=== PATIENT | female | born 1950 | race Hispanic/Latino ===

== ENCOUNTER 2018-03-28 10:46 | Emergency (ER) | payer OTHER ==
[2018-03-28 12:25] LABS: Absolute Lymphocytes (CBC) 2.6 K/uL (0.7-4.9); Absolute Monocytes 0.5 K/uL (0.1-1.3); Absolute Neutrophil 5.1 K/uL (1.8-8.0); Basophils % 1.3 % (0-1.3); Eosinophils % 1.2 % (0-4.4); Hematocrit 42.6 % (36.0-45.0); MCH 30.4 pg (27.0-35.0); MCV 89.4 fL (80-100); MPV 9.4 fL (7.6-11.3); Monocytes % 5.5 % (3.3-12.3); RBC Red Blood Cell Count 4.77 M/uL (3.86-4.86)
[2018-03-28 12:33] LABS: Urine Blood TRACE (NEG); Urine Glucose NEGATIVE (NEG); Urine Protein NEGATIVE (NEG); Urine pH 6.5 (5.0-7.0)
--- NOTE | 2018-03-28 12:39 | EKG ---
Test Date: 2018-03-28 Test Time: 11:40:08 Mounter Clarinets: VIANCA MEASUREMENT RESULTS: Intervals: Rate: 64 MS: 146 QRSD: 80 QT: 394 QTc: 406 [place]: P: 50 MS: 146 QRS: 45 T: 59 INTERPRETIVE STATEMENTS: Normal sinus rhythm Normal ECG No previous ECG available for comparison Electronically Signed On 03-28-18 12:38:42 CDT by Fabio Kwon
[2018-03-28 12:45] LABS: Magnesium 2.3 mg/dL (1.8-2.4)
[2018-03-28 13:37] LABS: ALT/SGPT 17 U/L (12-78); AST/SGOT 14 U/L (15-37); Alkaline Phosphatase 86 U/L (45-117); BUN Blood Urea Nitrogen 14 mg/dL (7-18); Bicarbonate 24 mmol/L (21-32); Bilirubin Total 0.5 mg/dL (0.2-1.0); Glucose Level 91 mg/dL (74-106); Potassium 3.9 mmol/L (3.5-5.1); Protein, Total 7.8 g/dL (6.4-8.2); Sodium Level 143 mmol/L (136-145)
--- NOTE | 2018-03-28 13:42 | EDPHYS ---
Physician Documentation [facility] Name: Lynn Rubin Age: 67 yrs Sex: Female : 1950 Arrival Date: 03/28/2018 Time: 10:49 Bed 18 Private MD: None, None ED Physician John Blair HPI: 03/28 11:32 This 67 yrs old Female presents to ER via Ambulatory with complaints of ps1 lightheaded. 11:32 patient states that she has been really stressed lately and not getting much sleep. She ps1 has been losing weight and having symptoms of diabetes with polyuria and polydipsia. She was on her way to work last night and felt a couple episodes of lightheadedness and she stayed home and went to sleep. She hasn't been sleeping much, about an hour a day but got sleep last night. No CP, tightness, pressure. . Historical: - Allergies: 10:55 No Known Allergies; jl7 - Home Meds: 10:55 None [Active]; jl7 - PMHx: 10:55 None; jl7 - PSHx: 10:55 Tubal ligation; jl7 - Immunization history:: Adult Immunizations unknown. - Social history:: Smoking status: Patient/guardian denies using tobacco. - Ebola Screening: : No symptoms or risks identified at this time. ROS: 11:32 Eyes: Negative for injury, pain, redness, and discharge, ENT: Negative for injury, ps1 pain, and discharge, Cardiovascular: Negative for chest pain, palpitations, and edema, Respiratory: Negative for shortness of breath, cough, wheezing, and pleuritic chest pain, Abdomen/GI: Negative for abdominal pain, nausea, vomiting, diarrhea, and constipation, Back: Negative for injury and pain. 11:32 Constitutional: Positive for fatigue, weight loss. 11:32 : Positive for urinary frequency. 11:32 Neuro: Positive for near syncope. Exam: 11:32 Constitutional: This is a well developed, well nourished patient who is awake, alert, ps1 and in no acute distress. Head/Face: Normocephalic, atraumatic. Eyes: Pupils equal round and reactive to light, extra-ocular motions intact. Lids and lashes normal. Conjunctiva and sclera are non-icteric and not injected. Chest/axilla: Normal chest wall appearance and motion. Nontender with no deformity. No lesions are appreciated. Cardiovascular: Regular rate and rhythm. No gallops, murmurs, or rubs. Normal PMI, no JVD. No pulse deficits. Respiratory: Lungs have equal breath sounds bilaterally, clear to auscultation and percussion. No rales, rhonchi or wheezes noted. No increased work of breathing, no retractions or nasal flaring. Abdomen/GI: Soft, non-tender, with normal bowel sounds. No distension or tympany. No guarding or rebound. No evidence of tenderness throughout. Skin: Warm, dry with normal turgor. Normal color with no rashes, no lesions, and no evidence of cellulitis. MS/ Extremity: Pulses equal, no cyanosis. Neurovascular intact. Full, normal range of motion. Neuro: Awake and alert, GCS 15, oriented to person, place, time, and situation. Cranial nerves II-XII grossly intact. Sensory grossly intact. Vital Signs: 10:55 BP 163 / 97; Pulse 72; Resp 16 S; Temp 98.4(O); Pulse Ox 97% on R/A; Pain 0/10; jl7 12:00 BP 134 / 86; Pulse 71; Resp 16; Temp 98.3; Pulse Ox 99% on R/A; Pain 0/10; ch 13:29 BP 175 / 92; Pulse 60; Resp 14; Temp 97.2; Pulse Ox 99% on R/A; Pain 0/10; ch MDM: 11:42 Patient medically screened. ps1 13:46 Data reviewed: vital signs, nurses notes, lab test result(s), EKG, radiologic studies, ps1 and as a result, I will discharge patient. Counseling: I had a detailed discussion with the patient and/or guardian regarding: the historical points, exam findings, and any diagnostic results supporting the discharge/admit diagnosis, the presence of at least one elevated blood pressure reading (>120/80) during this emergency department visit, lab results, the need for outpatient follow up, an visual lead. Special discussion: I have referred the patient to see his PCP for further evaluation of high blood pressure. 03/28 11:28 Order name: Lipase; Complete Time: 12:47 ps1 03/28 11:28 Order name: CBC with Diff; Complete Time: 12:28 ps1 03/28 11:28 Order name: Magnesium; Complete Time: 12:47 ps1 03/28 11:28 Order name: Protime (+inr); Complete Time: 12:56 ps1 03/28 11:28 Order name: Troponin (emerg Dept Use Only); Complete Time: 12:56 ps1 03/28 12:23 Order name: Urine Dipstick--Ancillary (enter results); Complete Time: 12:37 bd 03/28 11:28 Order name: EKG; Complete Time: 11:29 ps1 03/28 11:28 Order name: Cardiac monitoring; Complete Time: 13:29 ps1 03/28 11:28 Order name: EKG - Nurse/Tech; Complete Time: 13:29 ps1 03/28 11:28 Order name: IV Saline Lock; Complete Time: 13:29 ps1 03/28 11:28 Order name: Labs collected and sent; Complete Time: 13:29 ps1 03/28 11:28 Order name: NPO; Complete Time: 13:29 ps1 03/28 11:28 Order name: O2 Per Protocol; Complete Time: 13:29 ps1 03/28 13:13 Order name: CMP; Complete Time: 13:41 ps1 03/28 11:28 Order name: O2 Sat Monitoring; Complete Time: 13:29 ps1 03/28 11:28 Order name: Urine Dipstick-Ancillary (obtain specimen); Complete Time: 13:29 ps1 EC:40 Rate is 64 beats/min. Rhythm is regular. QRS [place] is Normal. UT interval is normal. QRS ps1 interval is normal. QT interval is normal. No Q waves. T waves are Normal. No ST changes noted. Clinical impression: Normal ECG. Interpreted by me. Administered Medications: No medications were administered Disposition: 03/28/18 13:42 Discharged to Home. Impression: Near Syncope, Anxiety. - Condition is Stable. - Discharge Instructions: Near-Syncope, [id number]. - Medication Reconciliation Form, Thank You Letter, Antibiotic Education, Prescription Opioid Use form. - Follow up: Private Physician; When: As needed; Reason: Further diagnostic work-up, Recheck today's complaints, Continuance of care, Re-evaluation by your physician. Follow up: Emergency Department; When: As needed; Reason: Trouble breathing, Worsening of condition. - Problem is new. - Symptoms are resolved. Signatures: Dispatcher [employer] EDTN Dean, Jahala, RN RN jl7 John Blair MD MD ps1 JoshuamirandaMaya cc3 Corrections: (The following items were deleted from the chart) 14:17 13:42 03/28/2018 13:42 Discharged to Home. Impression: Near Syncope; Anxiety. Condition cc3 is Stable. Forms are Medication Reconciliation Form, Thank You Letter, Antibiotic Education, Prescription Opioid Use. Follow up: Private Physician; When: As needed; Reason: Further diagnostic work-up, Recheck today's complaints, Continuance of care, Re-evaluation by your physician. Follow up: Emergency Department; When: As needed; Reason: Trouble breathing, Worsening of condition. Problem is new. Symptoms are resolved. ps1
--- NOTE | 2018-03-28 13:42 | ER ---
Nurse's Notes [facility] Name: Lynn Rubin Age: 67 yrs Sex: Female : 1950 Arrival Date: 03/28/2018 Time: 10:49 Bed 18 Private MD: None, None Diagnosis: Near Syncope;Anxiety Presentation: 03/28 10:52 Presenting complaint: Patient states: "I got dizzy last night so I thought I should get jl7 checked out." Denies dizziness right now, denies BOGGS, denies N/V/D. Transition of care: patient was not received from another setting of care. Onset of symptoms was March 27, 2018. Risk Assessment: Do you want to hurt yourself or someone else? Patient reports no desire to harm self or others. Initial Sepsis Screen: Does the patient meet any 2 criteria? No. Patient's initial sepsis screen is negative. Does the patient have a suspected source of infection? No. Patient's initial sepsis screen is negative. Care prior to arrival: None. 10:52 Method Of Arrival: Ambulatory jl7 10:52 Acuity: CARMEN 3 jl7 Historical: - Allergies: 10:55 No Known Allergies; jl7 - Home Meds: 10:55 None [Active]; jl7 - PMHx: 10:55 None; jl7 - PSHx: 10:55 Tubal ligation; jl7 - Immunization history:: Adult Immunizations unknown. - Social history:: Smoking status: Patient/guardian denies using tobacco. - Ebola Screening: : No symptoms or risks identified at this time. Screenin:03 Abuse screen: Denies threats or abuse. Denies injuries from another. Nutritional ch screening: No deficits noted. Tuberculosis screening: No symptoms or risk factors identified. Fall Risk None identified. Assessment: 11:02 General: Appears in no apparent distress. comfortable, Behavior is calm, cooperative, ch appropriate for age. Pain: Denies pain. Neuro: Level of Consciousness is awake, alert, obeys commands, Oriented to person, place, time, situation, Maintenance Helper are equal bilaterally Moves all extremities. Full function Gait is steady, Speech is normal, Facial symmetry appears normal, Facial symmetry: tongue is midline, Pupils are PERRLA, Reports dizziness, intermittantly, with slight pain in temples intermittantly. Cardiovascular: Denies chest pain. Respiratory: Airway is patent Respiratory effort is even, unlabored, Breath sounds are clear bilaterally. GI: No signs and/or symptoms were reported involving the gastrointestinal system. : No signs and/or symptoms were reported regarding the genitourinary system. EENT: Reports feeling full in L ear, feels like she cannot hear quite right. . Derm: Skin is pink, warm \\T\\ dry. Musculoskeletal: Circulation, motion, and sensation intact. 12:00 Reassessment: Patient appears in no apparent distress at this time. No changes from previously documented assessment. Patient and/or family updated on plan of care and expected duration. Pain level reassessed. Patient is alert, oriented x 3, equal unlabored respirations, skin warm/dry/pink. Patient denies pain at this time. 13:07 Reassessment: Patient appears in no apparent distress at this time. Patient and/or ch family updated on plan of care and expected duration. Pain level reassessed. Patient is alert, oriented x 3, equal unlabored respirations, skin warm/dry/pink. Patient denies pain at this time. 13:29 Reassessment: Patient appears in no apparent distress at this time. Patient and/or ch family updated on plan of care and expected duration. Pain level reassessed. Patient is alert, oriented x 3, equal unlabored respirations, skin warm/dry/pink. Patient denies pain at this time. Patient states feeling better. Patient states symptoms have improved. Vital Signs: 10:55 BP 163 / 97; Pulse 72; Resp 16 S; Temp 98.4(O); Pulse Ox 97% on R/A; Pain 0/10; jl7 12:00 BP 134 / 86; Pulse 71; Resp 16; Temp 98.3; Pulse Ox 99% on R/A; Pain 0/10; ch 13:29 BP 175 / 92; Pulse 60; Resp 14; Temp 97.2; Pulse Ox 99% on R/A; Pain 0/10; ED Course: 10:49 Patient arrived in ED. mr 10:49 None, None is Private Physician. mr 10:55 Triage completed. jl7 10:55 Arm band placed on right wrist. jl7 11:01 Gloria Foreman, RN is Primary Nurse. ch 11:03 No apparent distress. Resting quietly. ch 11:03 Patient has correct armband on for positive identification. Bed in low position. Call light in reach. Side rails up X 1. 11:03 No provider procedures requiring assistance completed. 11:06 John Blair MD is Attending Physician. ps1 12:20 Urine collected:. Inserted saline lock: 18 gauge in left forearm, using aseptic technique. Blood collected. 14:17 IV discontinued, intact, bleeding controlled, No redness/swelling at site. Pressure cc3 dressing applied. Administered Medications: No medications were administered Outcome: 13:42 Discharge ordered by MD. ps1 14:16 Discharged to home ambulatory. cc3 14:16 Condition: stable 14:16 Discharge instructions given to patient, Instructed on discharge instructions, follow up and referral plans. Demonstrated understanding of instructions, follow-up care. 14:17 Patient left the ED. cc3 Signatures: Gloria Foreman, RN DOMENICA Lynn Marshall Jahala RN RN jl7 John Blair MD MD ps1 Maya Gill cc3
[2018-03-28 14:25] VITALS: O2SAT 99
[2018-03-28 14:26] VITALS: BP 175/92; TEMP 97.2
== END 2018-03-28 14:17 | disposition home or self-care (01) ==
LOC: ER 10:46
DX: F41.9 Anxiety disorder, unspecified (principal); R55 Syncope and collapse
CPT/HCPCS: 36415; 80053; 81003; 83690; 83735; 84484; 85025; 85610; 93005; 99283

== ENCOUNTER 2019-04-16 14:23 | Emergency (ER) | payer OTHER ==
[2019-04-16 15:28] LABS: Absolute Lymphocytes (CBC) 2.5 K/uL (0.7-4.9); Basophils % 0.8 % (0-1.3); Hematocrit 40.6 % (36.0-45.0); Lymphocytes % 28.2 % (15.3-44.8); MPV 9.7 fL (7.6-11.3); RBC Red Blood Cell Count 4.53 M/uL (3.86-4.86)
[2019-04-16 15:33] LABS: Protime INR 0.96
[2019-04-16 15:47] LABS: ALT/SGPT 17 U/L (12-78); AST/SGOT 10 U/L (15-37); Albumin 3.6 g/dL (3.4-5.0); Alkaline Phosphatase 89 U/L (45-117); BUN Blood Urea Nitrogen 14 mg/dL (7-18); Bicarbonate 27 mmol/L (21-32); Bilirubin Direct < 0.1 mg/dL (0-0.2); Bilirubin Total 0.3 mg/dL (0.2-1.0); Glucose Level 109 mg/dL (74-106); Magnesium 2.1 mg/dL (1.8-2.4); NT PRO-BNP 92 pg/mL (<125); Potassium 3.5 mmol/L (3.5-5.1); Protein, Total 7.4 g/dL (6.4-8.2); Sodium Level 145 mmol/L (136-145); Troponin (Emerg Dept Use Only) < 0.02 ng/mL (0.0-0.045)
--- NOTE | 2019-04-16 16:42 | RAD REPORT ---
EXAM DESCRIPTION: Jabari Single View04/16/2019 3:05 pm CLINICAL HISTORY: Chest pain COMPARISON: none FINDINGS: The lungs appear clear of acute infiltrate. The heart is normal size . Lucency with a sclerotic border is within the left humeral head may represent subchondral cysts
[2019-04-16] MEDS ORDERED: KETOROLAC 30 MG/ML INJ ONE (17:05)
[2019-04-16] MEDS ORDERED: AMLODIPINE 5 MG TAB ONE (17:05)
--- NOTE | 2019-04-16 17:15 | ER ---
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 Transition of care: patient was not received from another setting of care. Onset of symptoms was April 16, 2019. Risk Assessment: Do you want to hurt yourself or someone else? Patient reports no desire to harm self or others. Initial Sepsis Screen: Does the patient meet any 2 criteria? No. Patient's initial sepsis screen is negative. Does the patient have a suspected source of infection? No. Patient's initial sepsis screen is negative. Care prior to arrival: None. 14:32 Method Of Arrival: Ambulatory la1 14:32 Acuity: CARMEN 3 la1 Historical: - Allergies: 14:33 No Known Allergies; la1 - PMHx: 14:33 None; la1 - Immunization history:: Adult Immunizations up to date. - Social history:: Smoking status: Patient/guardian denies using tobacco. - Ebola Screening: : No symptoms or risks identified at this time. Screenin:21 Abuse screen: Denies threats or abuse. Denies injuries from another. Nutritional rv screening: No deficits noted. Tuberculosis screening: No symptoms or risk factors identified. Fall Risk None identified. Assessment: 16:00 General: Appears in no apparent distress. comfortable, Behavior is calm, cooperative. rv 16:00 Pain: Complains of pain in left shoulder. Neuro: Level of Consciousness is awake, rv alert, obeys commands, Oriented to person, place, time, situation. Cardiovascular: Patient's skin is warm and dry. Respiratory: Airway is patent. GI: No signs and/or symptoms were reported involving the gastrointestinal system. : No signs and/or symptoms were reported regarding the genitourinary system. EENT: No signs and/or symptoms were reported regarding the EENT system. Derm: Skin is intact. Musculoskeletal: Reports pain in left shoulder. Vital Signs: 14:33 BP 222 / 85; Pulse 79; Resp 16; Temp 97.1; Pulse Ox 98% on R/A; Weight 54.43 kg; Height la1 5 ft. 4 in. (162.56 cm); 15:15 BP 191 / 86; Pulse 67; Resp 19; Pulse Ox 98% ; lt1 15:30 BP 181 / 93; Pulse 68; Resp 21; Pulse Ox 98% on R/A; rv 15:45 BP 202 / 92; Pulse 69; Resp 17; Pulse Ox 98% on R/A; rv 16:00 BP 198 / 92; Pulse 68; Resp 17; Pulse Ox 99% on R/A; rv 16:32 BP 210 / 87; Pulse 64; Resp 16; Pulse Ox 99% ; rv 16:45 BP 181 / 98; Pulse 65; Resp 16; Pulse Ox 99% on R/A; rv 17:20 BP 182 / 82; Pulse 66; Resp 16; Temp 97.5; Pulse Ox 98% on R/A; rv 14:33 Body Mass Index 20.60 (54.43 kg, 162.56 cm) la1 ED Course: 14:27 Patient arrived in ED. dl4 14:28 None, None is Private Physician. dl4 14:33 Triage completed. la1 14:34 Arm band placed on left wrist. la1 14:42 April Matamoros [facility]-C [facility]. snw 14:42 Butch Mcclellan MD is Attending Physician. snw 15:00 Patient has correct armband on for positive identification. Bed in low position. Call rv light in reach. Side rails up X 1. Pulse ox on. NIBP on. 15:05 Tyrese Gonzalez, DOMENICA is Primary Nurse. rv 15:08 XRAY Chest (1 view) In Process Unspecified. EDMS 15:14 Initial lab(s) drawn, by me, sent to lab. EKG done, by ED staff. Inserted saline lock: lt1 20 gauge in left antecubital area, using aseptic technique. 17:12 Honorio Wray MD is Referral Physician. snw 17:44 No provider procedures requiring assistance completed. IV discontinued, intact, rv bleeding controlled, No redness/swelling at site. Pressure dressing applied. Administered Medications: 17:10 Drug: Norvasc 5 mg Route: PO; rv 17:28 Follow up: Response: No adverse reaction rv 17:10 Drug: TORadol - Ketorolac 15 mg Route: IVP; Site: left antecubital; rv 17:27 Follow up: Response: No adverse reaction rv Outcome: 17:13 Discharge ordered by MD. [place] 17:44 Discharged to home ambulatory, with family. rv 17:44 Condition: good 17:44 Discharge instructions given to patient, family, Instructed on discharge instructions, follow up and referral plans. medication usage, Demonstrated understanding of instructions, follow-up care, medications, Prescriptions given X 2. 17:44 Patient left the ED. rv Signatures: Dispatcher [employer] EDMS April Matamoros, DELIVERY SUPERVISOR-C DELIVERY SUPERVISOR-Csnw Nathaniel Iyer RN RN la1 Tyrese Gonzalez RN RN rv Jason Arboleda dl4 Odalys Garces lt1 Corrections: (The following items were deleted from the chart) 14:46 14:32 Acuity: CARMEN 4 la1 la1
--- NOTE | 2019-04-16 17:16 | EDPHYS ---
Physician Documentation [facility] Name: Lynn Rubin Age: 68 yrs Sex: Female : 1950 Arrival Date: 04/16/2019 Time: 14:27 Bed 28 Private MD: None, None ED Physician Butch Mcclellan HPI: 04/16 15:10 This 68 yrs old Female presents to ER via Ambulatory with complaints of snw Shoulder Pain. 15:10 The patient or guardian complains of decreased range of motion, pain, that is chronic, snw spasm, tenderness. left shoulder, left trapezius and left sternocleidomastoid. Context: The problem was sustained at an unknown site, resulted from repetitive motion, lifting, The patient experiences decreased range of motion, when attempts to raise arm. Onset: The symptoms/episode began/occurred gradually, and became persistent 2 days ago. Modifying factors: the symptoms are alleviated by remaining still. Severity of symptoms: At their worst the symptoms were moderate. The patient has experienced a previous episode, approximately 8 months ago. The patient has not recently seen a physician, and does not have an established primary care provider. Historical: - Allergies: 14:33 No Known Allergies; la1 - PMHx: 14:33 None; la1 - Immunization history:: Adult Immunizations up to date. - Social history:: Smoking status: Patient/guardian denies using tobacco. - Ebola Screening: : No symptoms or risks identified at this time. ROS: 15:09 Constitutional: Negative for fever, chills, and weight loss, Eyes: Negative for injury, snw pain, redness, and discharge, ENT: Negative for injury, pain, and discharge, Neck: Negative for injury, pain, and swelling, Cardiovascular: Negative for chest pain, palpitations, and edema, Respiratory: Negative for shortness of breath, cough, wheezing, and pleuritic chest pain, Abdomen/GI: Negative for abdominal pain, nausea, vomiting, diarrhea, and constipation, Back: Negative for injury and pain, : Negative for injury, bleeding, discharge, and swelling, Skin: Negative for injury, rash, and discoloration, Neuro: Negative for headache, weakness, numbness, tingling, and seizure, Psych: Negative for depression, anxiety, suicide ideation, homicidal ideation, and hallucinations. 15:09 MS/extremity: Positive for injury or acute deformity, decreased range of motion, pain, of the left lateral aspect of neck and left anterior aspect of neck, pain with abduction of left upper extremity. Exam: 15:07 Constitutional: This is a well developed, well nourished patient who is awake, alert, snw and in no acute distress. Head/Face: Normocephalic, atraumatic. Eyes: Pupils equal round and reactive to light, extra-ocular motions intact. Lids and lashes normal. Conjunctiva and sclera are non-icteric and not injected. Cornea within normal limits. Periorbital areas with no swelling, redness, or edema. ENT: Nares patent. No nasal discharge, no septal abnormalities noted. Tympanic membranes are normal and external auditory canals are clear. Oropharynx with no redness, swelling, or masses, exudates, or evidence of obstruction, uvula midline. Mucous membranes moist. Cardiovascular: Regular rate and rhythm with a normal S1 and S2. No gallops, murmurs, or rubs. Normal PMI, no JVD. No pulse deficits. Respiratory: Lungs have equal breath sounds bilaterally, clear to auscultation and percussion. No rales, rhonchi or wheezes noted. No increased work of breathing, no retractions or nasal flaring. Abdomen/GI: Soft, non-tender, with normal bowel sounds. No distension or tympany. No guarding or rebound. No evidence of tenderness throughout. Back: No spinal tenderness. No costovertebral tenderness. Full range of motion. Skin: Warm, dry with normal turgor. Normal color with no rashes, no lesions, and no evidence of cellulitis. Neuro: Awake and alert, GCS 15, oriented to person, place, time, and situation. Cranial nerves II-XII grossly intact. Motor strength 5/5 in all extremities. Sensory grossly intact. Cerebellar exam normal. Normal gait. Psych: Awake, alert, with orientation to person, place and time. Behavior, mood, and affect are within normal limits. 15:07 Neck: External neck: is normal, C-spine: appears grossly normal, Thyroid: appears normal, Trachea: is midline with no obvious abnormalities, ROM/movement: tenderness at 90 degrees abduction of left upper extremity. 15:07 Musculoskeletal/extremity: ROM: limited passive range of motion due to pain, left upper ext at 90 degrees, Circulation is intact in all extremities. Sensation intact. Vital Signs: 14:33 BP 222 / 85; Pulse 79; Resp 16; Temp 97.1; Pulse Ox 98% on R/A; Weight 54.43 kg; Height la1 5 ft. 4 in. (162.56 cm); 15:15 BP 191 / 86; Pulse 67; Resp 19; Pulse Ox 98% ; lt1 15:30 BP 181 / 93; Pulse 68; Resp 21; Pulse Ox 98% on R/A; rv 15:45 BP 202 / 92; Pulse 69; Resp 17; Pulse Ox 98% on R/A; rv 16:00 BP 198 / 92; Pulse 68; Resp 17; Pulse Ox 99% on R/A; rv 16:32 BP 210 / 87; Pulse 64; Resp 16; Pulse Ox 99% ; rv 16:45 BP 181 / 98; Pulse 65; Resp 16; Pulse Ox 99% on R/A; rv 17:20 BP 182 / 82; Pulse 66; Resp 16; Temp 97.5; Pulse Ox 98% on R/A; rv 14:33 Body Mass Index 20.60 (54.43 kg, 162.56 cm) la1 MDM: 14:49 Patient medically screened. brennon 17:16 Data reviewed: vital signs, nurses notes. Data interpreted: Pulse oximetry: on room air snw is 99 %. Interpretation: normal. Counseling: I had a detailed discussion with the patient and/or guardian regarding: the historical points, exam findings, and any diagnostic results supporting the discharge/admit diagnosis, the presence of at least one elevated blood pressure reading (>120/80) during this emergency department visit, lab results, radiology results, the need for outpatient follow up, to return to the emergency department if symptoms worsen or persist or if there are any questions or concerns that arise at home. Special discussion: Based on the history and exam findings, there is no indication for further emergent testing or inpatient evaluation. I discussed with the patient/guardian the need to see the orthopedic surgeon for further evaluation of the symptoms. I discussed with the patient/guardian the need to see the primary care provider for further evaluation of the symptoms. 04/16 14:42 Order name: Basic Metabolic Panel; Complete Time: 15:52 snw 04/16 14:42 Order name: CBC with Diff; Complete Time: 15:41 snw /01 14:42 Order name: LFT's; Complete Time: 15:52 w 04/16 14:42 Order name: Magnesium; Complete Time: 15:52 04/16 14:42 Order name: NT PRO-BNP; Complete Time: 15:52 w 04/16 14:42 Order name: PT-INR; Complete Time: 15:41 w 04/16 14:42 Order name: Troponin (emerg Dept Use Only); Complete Time: 15:52 w 04/16 14:42 Order name: XRAY Chest (1 view); Complete Time: 17:12 04/16 14:42 Order name: EKG; Complete Time: 14:44 w 04/16 14:42 Order name: Cardiac monitoring; Complete Time: 15:13 04/16 14:42 Order name: EKG - Nurse/Tech; Complete Time: 15:13 04/16 14:42 Order name: IV Saline Lock; Complete Time: 15:13 04/16 14:42 Order name: Labs collected and sent; Complete Time: 15:13 04/16 14:42 Order name: O2 Per Protocol; Complete Time: 15:13 04/16 14:42 Order name: O2 Sat Monitoring; Complete Time: 15:13 04/16 15:12 Order name: Recheck B/P; Complete Time: 15:16 snw Administered Medications: 17:10 Drug: Norvasc 5 mg Route: PO; rv 17:28 Follow up: Response: No adverse reaction rv 17:10 Drug: TORadol - Ketorolac 15 mg Route: IVP; Site: left antecubital; rv 17:27 Follow up: Response: No adverse reaction rv Disposition: 04/17 09:24 Co-signature as Attending Physician, Butch Mcclellan MD I agree with the assessment and brennon plan of care. Disposition: 04/16/19 17:13 Discharged to Home. Impression: Pain in left shoulder, Essential (primary) hypertension. - Condition is Stable. - Discharge Instructions: Joint Pain, Hypertension, Musculoskeletal Pain, Shoulder Pain, How to Take Your Blood Pressure, [id number], Cryotherapy, DASH Eating Plan, Heat Therapy, Managing Your Hypertension. - Prescriptions for Norvasc 5 mg Oral Tablet - take 1 tablet by ORAL route once daily; 20 tablet. orphenadrine citrate 100 mg Oral Tablet Sustained Release - take 1 tablet by ORAL route 2 times per day As needed; 20 tablet. - Medication Reconciliation Form, Thank You Letter, Antibiotic Education, Prescription Opioid Use, Work release form form. - Follow up: Private Physician; When: 2 - 3 days; Reason: Recheck today's complaints, Continuance of care, Re-evaluation by your physician. Follow up: Honorio Wray MD; When: 2 - 3 days; Reason: Recheck today's complaints, Continuance of care. Signatures: Dispatcher [employer] EDSC Butch Mcclellan MD MD cha Therrien, Shelly, ENDOCRINOLOGY TEACHER-C ENDOCRINOLOGY TEACHER-Csnw Nathaniel Iyer RN RN laTyrese Ma RN RN rv Corrections: (The following items were deleted from the chart) 04/16 17:44 17:13 04/16/2019 17:13 Discharged to Home. Impression: Pain in left shoulder; Essential rv (primary) hypertension. Condition is Stable. Forms are Medication Reconciliation Form, Thank You Letter, Antibiotic Education, Prescription Opioid Use. Follow up: Private Physician; When: 2 - 3 days; Reason: Recheck today's complaints, Continuance of care, Re-evaluation by your physician. Follow up: Dr. Honorio Wray; When: 2 - 3 days; Reason: Recheck today's complaints, Continuance of care. snw
[2019-04-16 18:55] VITALS: BP 182/82; TEMP 97.5; O2SAT 98
--- NOTE | 2019-04-17 08:37 | EKG ---
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
== END 2019-04-16 17:44 | disposition home or self-care (01) ==
LOC: ER 14:23
DX: M25.512 Pain in left shoulder (principal); I10 Essential (primary) hypertension
CPT/HCPCS: 36415; 71045; 80048; 80076; 83735; 83880; 84484; 85025; 85610; 93005; 96374; 99284

== ENCOUNTER 2021-08-18 20:15 | Emergency (ER) | payer OTHER ==
[2021-08-18] MEDS ORDERED: IBUPROFEN 400 MG TAB ONE (22:29)
[2021-08-18] MEDS ORDERED: ACETAMINOPHEN 325 MG TABLET ONE (22:29)
[2021-08-18] MEDS ORDERED: cloNIDine HCL 0.1 MG TAB ONE (23:02)
--- NOTE | 2021-08-19 00:58 | ER ---
Nurse's Notes [facility] Name: Lynn Rubin Age: 70 yrs Sex: Female : 1950 Arrival Date: 08/18/2021 Time: 20:19 Bed 10 Private MD: Diagnosis: Left knee pain. Hypertension Presentation: 08/18 21:03 Chief complaint: Patient states: complaining of l knee pain/swelling increasing for one as6 week, denies injury or fall, pt also states she has been walking a lot with work. Coronavirus screen: At this time, the client does not indicate any symptoms associated with coronavirus-19. Ebola Screen: No symptoms or risks identified at this time. Initial Sepsis Screen: Does the patient meet any 2 criteria? No. Patient's initial sepsis screen is negative. Does the patient have a suspected source of infection? No. Patient's initial sepsis screen is negative. Risk Assessment: Do you want to hurt yourself or someone else? Patient reports no desire to harm self or others. Onset of symptoms was August 11, 2021. 21:03 Method Of Arrival: Ambulatory as6 21:03 Acuity: CARMEN 4 as6 Triage Assessment: 21:11 General: Appears in no apparent distress. Behavior is calm, cooperative. Pain: as6 Complains of pain in left knee. Respiratory: No deficits noted. Musculoskeletal: Swelling present in left knee. Historical: - Allergies: 21:11 No Known Allergies; as6 - Home Meds: 21:11 None [Active]; as6 - PMHx: 21:11 None; as6 - PSHx: 21:11 None; as6 - Immunization history:: Adult Immunizations not up to date, Client reports having NOT received the Covid vaccine. - Social history:: Smoking status: Patient denies any tobacco usage or history of. Screenin:03 Abuse screen: Denies threats or abuse. Nutritional screening: No deficits noted. al4 Tuberculosis screening: No symptoms or risk factors identified. Fall Risk Fall in past 12 months (25 points). No IV (0 pts). Ambulatory Aid- None/Bed Rest/Nurse Assist (0 pts). Gait- Normal/Bed Rest/Wheelchair (0 pts) Mental Status- Oriented to own ability (0 pts). Total Harris Fall Scale indicates No Risk (0-24 pts). Assessment: 22:39 General: Appears in no apparent distress. comfortable, Behavior is calm, cooperative, al4 appropriate for age. Pain: Complains of pain in left knee Pain currently is 9 out of 10 on a pain scale. Neuro: Level of Consciousness is awake, alert, obeys commands, Oriented to person, place, time, situation. Cardiovascular: Heart tones present Capillary refill < 3 seconds Patient's skin is warm and dry. Respiratory: Airway is patent Respiratory effort is even, unlabored, Respiratory pattern is regular, symmetrical, Breath sounds are clear bilaterally. GI: No signs and/or symptoms were reported involving the gastrointestinal system. : No signs and/or symptoms were reported regarding the genitourinary system. EENT: No signs and/or symptoms were reported regarding the EENT system. Derm: No signs and/or symptoms reported regarding the dermatologic system. Musculoskeletal: Reports pain in Left knee that is aggravated by walking. 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 22:59 Reassessment: physician aware of bp. patient and daughter deny history of high bp, and al4 pt states it is because she is nervous. verbal order received from physician. 23:30 Reassessment: Patient and/or family updated on plan of care and expected duration. Pain al4 level reassessed. Patient is alert, oriented x 3, equal unlabored respirations, skin warm/dry/pink. physician visited bedside and examined patient. he is aware of high BP . 23:53 Reassessment: patient ambulated to restroom. al4 08/19 01:04 Reassessment: No changes from previously documented assessment. Patient and/or family al4 updated on plan of care and expected duration. Pain level reassessed. Patient is alert, oriented x 3, equal unlabored respirations, skin warm/dry/pink. Vital Signs: 08/18 21:03 BP 199 / 87; Pulse 72; Resp 16 S; Temp 99.3(TE); Pulse Ox 100% on R/A; Weight 58.97 kg as6 (R); Height 5 ft. 2 in. (157.48 cm) (R); Pain 9/10; 22:39 BP 206 / 95; Pulse 70; Resp 18; Pulse Ox 100% ; al4 23:29 BP 187 / 84; Pulse 60; Resp 18; Pulse Ox 100% ; al4 08/19 01:04 BP 110 / 65; Pulse 60; Resp 18; Pulse Ox 98% ; Pain 5/10; al4 08/18 21:03 Body Mass Index 23.78 (58.97 kg, 157.48 cm) as6 ED Course: 08/18 20:19 Patient arrived in ED. ja2 21:11 Triage completed. as6 21:27 Sha Rojas MD is Attending Physician. pkl 22:05 Shamar Lawrence is Primary Nurse. al4 22:23 CT Lumbar Spine Wo Con In Process Unspecified. EDMS 22:24 Knee Left Wo Con In Process Unspecified. EDMS 22:37 US Extremity Venous Unilateral Ltd In Process Unspecified. EDMS 23:03 Patient has correct armband on for positive identification. Placed in gown. Bed in low al4 position. Call light in reach. Side rails up X 1. Adult w/ patient. 23:34 Arm band placed on. al4 08/19 00:57 Temo Dahl MD is Referral Physician. pkl 01:04 No provider procedures requiring assistance completed. Patient did not have IV access al4 during this emergency room visit. Administered Medications: 08/18 22:39 Drug: Tylenol 650 mg Route: PO; al4 22:57 Follow up: Response: No adverse reaction al4 22:39 Drug: Motrin (ibuprofen) 400 mg Route: PO; al4 22:57 Follow up: Response: No adverse reaction al4 23:03 Drug: cloNIDine 0.2 mg Route: PO; al4 08/19 00:27 Follow up: Response: No adverse reaction; Blood pressure is lowered al4 Outcome: 00:57 Discharge ordered by . pkl 01:04 Discharged to home ambulatory. al4 01:04 Condition: stable 01:04 Discharge instructions given to patient, family, Instructed on discharge instructions, follow up and referral plans. medication usage, Demonstrated understanding of instructions, follow-up care, medications. 01:05 Patient left the ED. al4 Signatures: Dispatcher [employer] EDMS Sha Rojas MD MD pkl [facility] Pancho Nicholas RN RN as6 Shamar Lawrence al4 Corrections: (The following items were deleted from the chart) 08/18 22:59 22:39 Pulse 70bpm; Resp 18bpm; Pulse Ox 100%; al4 al4
--- NOTE | 2021-08-19 00:58 | EDPHYS ---
Physician Documentation [facility] Name: Lynn Rubin Age: 70 yrs Sex: Female : 1950 Arrival Date: 08/18/2021 Time: 20:19 Bed 10 Private MD: ED Physician Sha Rojas HPI: 08/18 21:57 This 70 yrs old Female presents to ER via Ambulatory with complaints of Leg pkl Pain. 21:57 The patient presents with pain, that is acute. The complaints affect the left leg and pkl left knee. Onset: The symptoms/episode began/occurred 1 month(s) ago, and became worse today. Historical: - Allergies: 21:11 No Known Allergies; as6 - Home Meds: 21:11 None [Active]; as6 - PMHx: 21:11 None; as6 - PSHx: 21:11 None; as6 - Immunization history:: Adult Immunizations not up to date, Client reports having NOT received the Covid vaccine. - Social history:: Smoking status: Patient denies any tobacco usage or history of. ROS: 21:57 Eyes: Negative for injury, pain, redness, and discharge, ENT: Negative for injury, pkl pain, and discharge, Neck: Negative for injury, pain, and swelling, Cardiovascular: Negative for chest pain, palpitations, and edema, Respiratory: Negative for shortness of breath, cough, wheezing, and pleuritic chest pain, Abdomen/GI: Negative for abdominal pain, nausea, vomiting, diarrhea, and constipation. 21:57 Back: Positive for of the lower back. 21:57 : Negative for urinary symptoms. 21:57 MS/extremity: Positive for pain, of the left leg and left knee. 21:57 Skin: Negative for rash. 21:57 Neuro: Negative for altered mental status, loss of consciousness. Exam: 21:57 Head/Face: Normocephalic, atraumatic. Eyes: Pupils equal round and reactive to light, pkl extra-ocular motions intact. Lids and lashes normal. Conjunctiva and sclera are non-icteric and not injected. Cornea within normal limits. Periorbital areas with no swelling, redness, or edema. ENT: Nares patent. No nasal discharge, no septal abnormalities noted. Tympanic membranes are normal and external auditory canals are clear. Oropharynx with no redness, swelling, or masses, exudates, or evidence of obstruction, uvula midline. Mucous membranes moist. Neck: Trachea midline, no thyromegaly or masses palpated, and no cervical lymphadenopathy. Supple, full range of motion without nuchal rigidity, or vertebral point tenderness. No Meningismus. Chest/axilla: Normal chest wall appearance and motion. Nontender with no deformity. No lesions are appreciated. Cardiovascular: Regular rate and rhythm with a normal S1 and S2. No gallops, murmurs, or rubs. Normal PMI, no JVD. No pulse deficits. Respiratory: Lungs have equal breath sounds bilaterally, clear to auscultation and percussion. No rales, rhonchi or wheezes noted. No increased work of breathing, no retractions or nasal flaring. Abdomen/GI: Soft, non-tender, with normal bowel sounds. No distension or tympany. No guarding or rebound. No evidence of tenderness throughout. 21:57 Back: pain, that is mild, Straight leg raises: left lower extremity illicits pain, at 30 degrees. 21:57 : Exam negative for acute changes. 21:57 Musculoskeletal/extremity: Extremities: grossly normal except: noted in the left leg and left knee: 21:57 Skin: Exam negative for rash. 21:57 Neuro: Orientation: is normal, Mentation: is normal, Cranial nerves: grossly normal, Motor: is normal. Vital Signs: 21:03 BP 199 / 87; Pulse 72; Resp 16 S; Temp 99.3(TE); Pulse Ox 100% on R/A; Weight 58.97 kg as6 (R); Height 5 ft. 2 in. (157.48 cm) (R); Pain 9/10; 22:39 BP 206 / 95; Pulse 70; Resp 18; Pulse Ox 100% ; al4 23:29 BP 187 / 84; Pulse 60; Resp 18; Pulse Ox 100% ; al4 08/19 01:04 BP 110 / 65; Pulse 60; Resp 18; Pulse Ox 98% ; Pain 5/10; al4 08/18 21:03 Body Mass Index 23.78 (58.97 kg, 157.48 cm) as6 MDM: 08/18 21:27 Patient medically screened. pkl 08/19 00:50 Data reviewed: vital signs, nurses notes, radiologic studies, CT scan, ultrasound. ED pkl course: Patient feeling better. Discussed imaging studies with patient and daughter. Advised to follow up with PCP in 2 to 3 days for BP re-check. To follow up with Orthopedist ( Dr. Dahl ) for pain left knee. Advised to take one Tylenol and one Advil 2 to 3 times daily as needed for pain. Patient and daughter understood instructions. 08/18 21:57 Order name: US Extremity Venous Unilateral Ltd pkl 08/18 21:57 Order name: CT Lumbar Spine Wo Con pkl 08/18 21:59 Order name: Knee Left Wo Con EDMS Administered Medications: 08/18 22:39 Drug: Tylenol 650 mg Route: PO; al4 22:57 Follow up: Response: No adverse reaction al4 22:39 Drug: Motrin (ibuprofen) 400 mg Route: PO; al4 22:57 Follow up: Response: No adverse reaction al4 23:03 Drug: cloNIDine 0.2 mg Route: PO; al4 08/19 00:27 Follow up: Response: No adverse reaction; Blood pressure is lowered al4 Disposition Summary: 08/19/21 00:57 Discharge Ordered Location: Home pkl Problem: new pkl Symptoms: have improved pkl Condition: Stable pkl Diagnosis - Left knee pain. Hypertension pkl Followup: pkl - With: Temo Dahl MD - When: 2 - 3 days - Reason: Re-evaluation by your physician Discharge Instructions: - Discharge Summary Sheet pkl Forms: - Medication Reconciliation Form pkl - Thank You Letter pkl - Antibiotic Education pkl - Prescription Opioid Use pkl Prescriptions: - Carvedilol 6.25 mg Oral Tablet - take 1 tablet by ORAL route 2 times per day with food; 60 tablet; Refills: 0, pkl Product Selection Permitted Signatures: Dispatcher [employer] Sha Rodrigues MD MD pkl Pancho Nicholas, DOMENICA RN as6 Shamar Lawrence al4
[2021-08-19 01:11] VITALS: TEMP 99.3
[2021-08-19 01:16] VITALS: BP 110/65; O2SAT 98
--- NOTE | 2021-08-19 08:03 | RAD REPORT ---
EXAM DESCRIPTION: USExtremakiko Venous Uni Ltd08/18/2021 10:38 pm CLINICAL HISTORY: left leg pain and swelling. COMPARISON: None. FINDINGS: Left common femoral, superficial femoral, popliteal and posterior tibial veins are compre ssible and demonstrate augmentation. Doppler demonstrates good flow. Grayscale, color and spectral analysis performed on all vessels IMPRESSION: No evidence of deep venous thrombosis involving the left lower extremity.
--- NOTE | 2021-08-19 10:22 | RAD REPORT ---
EXAM DESCRIPTION: CT - Knee Left Wo Con - 08/19/2021 6:25 am CLINICAL HISTORY: Left knee pain TECHNIQUE: Axial contrast-enhanced CT left knee with coronal and sagittal reformats. This exam was p erformed according to our departmental dose-optimization program, which includes automated exposure c ontrol, adjustment of the mA and/or kV according to patient size and/or use of iterative reconstructi on technique. COMPARISON: None. FINDINGS/IMPRESSION: 1. No acute fracture, dislocation or suspicious bony lesion. 2. Tricompartmental degenerative changes, worse at the medial compartment where there is severe joint space loss and tibiofemoral subchondral sclerosis. 3. Small suprapatellar joint effusion. 4. Above findings can be further evaluated with MRI. Electronically signed by: Stanley Millan MD 08/19/2021 12:28 AM TOOL CRIB MANAGER Due to temporary technical issues with the PACS/Fluency reporting system, reports are being signed by the in house radiologist without review as a courtesy to ensure prompt reporting. The interpreting r adiologist is fully responsible for the content of the report.
--- NOTE | 2021-08-19 10:23 | RAD REPORT ---
EXAM DESCRIPTION: CTSpine Lumbar Wo Con08/19/2021 6:25 am CLINICAL HISTORY: PAIN COMPARISON: None. TECHNIQUE: Contiguous axial images of lumbar spine were obtained utilizing 2 mm slice thickness at 2 mm interval reconstruction. In addition multiplanar reformats in the sagittal and coronal plane were generated and reviewed This exam was performed according to our departmental dose-optimization protocol, which includes auto mated exposure control, adjustment of the mA and/or kV according to patient size and/or use of iterat sathish reconstruction technique. FINDINGS: There is diffuse bony osteopenia. There is dextroscoliosis of approximately 25 degrees daquan tomic alignment of the lumbar spine. Vertebral body height is preserved without evidence of acute fra cture or spondylolisthesis. No retroperitoneal or paraspinal abnormality is seen. L1-2: Minimal degenerative disc disease with vacuum effect. No spinal canal stenosis L2-3: Less than 2 mm retrolisthesis of L1 over L2 with posterior facet hypertrophy. No compromise o f the spinal canal L3-4: Minimal degenerative disc disease with vacuum effect and rotational extra scoliosis. Posterio r facet hypertrophy. No compromise of the spinal canal L4-5: Degenerative grade 1 spondylolisthesis with a significant posterior facet hypertrophy. Broad- based bulge hypertrophy ligamentum flavum with significant spinal canal stenosis L5-S1: Very mild degenerative grade 1 spondylolisthesis posterior facet hypertrophy. Broad-based bu lge. Mild spinal canal narrowing. IMPRESSION: No acute fracture or spondylolisthesis of the lumbar spine. Diffuse bony osteopenia. Degenerative grade 1 spondylolisthesis at L4-5 with significant spinal canal stenosis. Mild spinal canal narrowing at L5-S1 with no compromise of the spinal canal. Electronically signed by: Hugo Guerrero MD 08/19/2021 12:11 AM [facility] Due to temporary technical issues with the PACS/Fluency reporting system, reports are being signed by the in house radiologist without review as a courtesy to ensure prompt reporting. The interpreting r adiologist is fully responsible for the content of the report.
== END 2021-08-19 01:05 | disposition home or self-care (01) ==
LOC: ER 20:15
DX: M25.562 Pain in left knee (principal); I10 Essential (primary) hypertension
CPT/HCPCS: 72131; 73700; 93971; 99283

== ENCOUNTER 2022-10-29 19:14 | Emergency (ER) | payer OTHER ==
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
--- NOTE | 2022-10-29 20:41 | RAD REPORT ---
EXAM DESCRIPTION: Hirent Pa And Lat (2 Views)10/29/2022 8:01 pm CLINICAL HISTORY: PAIN COMPARISON: Chest Single View dated 04/16/2019 TECHNIQUE: PA and lateral views of the chest. FINDINGS: The lungs are clear. No pneumothorax or effusion. The cardiomediastinal contours are unrem arkable, apart from tortuosity of the thoracic aorta. IMPRESSION: No acute cardiopulmonary process.
--- NOTE | 2022-10-29 20:43 | RAD REPORT ---
EXAM DESCRIPTION: RAD - Shoulder Left 2 View - 10/29/2022 8:01 pm CLINICAL HISTORY: PAIN COMPARISON: No comparisons TECHNIQUE: Internal and external rotation views of the left shoulder were obtained. FINDINGS: There is no fracture or dislocation. AC joint shows mild degenerative changes. Probable mi ld degenerative changes of the AC joint as well. Irregularity at the greater tuberosity, may relate t o longstanding rotator cuff changes. No acute or suspicious findings. IMPRESSION: No acute osseous abnormality. Chronic findings as above.
[2022-10-29] MEDS ORDERED: TRAMADOL HCL 50 MG TAB ONE (21:06)
[2022-10-29] MEDS ORDERED: IBUPROFEN 400 MG TAB ONE (21:06)
[2022-10-29] MEDS ORDERED: methocarbamoL 750 MG TAB ONE (21:06)
[2022-10-29] MEDS ORDERED: ONDANSETRON 4 MG (ODT) TAB ONE (21:07)
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
[2022-10-29 23:24] VITALS: BP 154/80; TEMP 98.1; O2SAT 98
== END 2022-10-29 21:26 | disposition home or self-care (01) ==
LOC: ER 19:14
DX: S43.402A Unspecified sprain of left shoulder joint, initial encounter (principal); S40.012A Contusion of left shoulder, initial encounter; V49.59XA Passenger injured in collision with other motor vehicles in traffic accident, initial encounter
CPT/HCPCS: 70450; 72125; 71046; 73030; 99283; Q0162

== ENCOUNTER → 2023-10-05 | Emergency (ER) | payer OTHER ==
[~2023-10-05] MED LIST: HYDROCODONE/APAP 7.5/325 MG TAB ONE; IBUPROFEN 400 MG TAB ONE
--- OUTSIDE RECORDS SUMMARY | 2023-10-05 22:35 | XMS REPORT | Continuity of Care Document ---
Author Name Unknown Address [address] [place] [address]. [address] [facility] [place] [address] Care Team Providers Care Senior Case Manager Name Role Phone Unavailable Unavailable Unavailable Encounters Start Date/Time End Date/Time Encounter Type Admission Type Attending Clinicians Care Facility Care Department Encounter ID Source 2023-09-09 11:04:48 2023-09-09 11:04:48 Outpatient [facility] [id number] Ari Portillo
--- NOTE | 2023-10-06 00:51 | ER ---
Nurse's Notes [facility] Name: Lynn Rubin Age: 72 yrs Sex: Female : 1950 Arrival Date: 10/05/2023 Time: 22:32 Bed 5 Private MD: Diagnosis: Fall (on)(from) sidewalk curb;Acute head injury, forehead contusion, closed head injury, acute headache, bilateral knee contusion Presentation: 10/05 22:42 Chief complaint: Patient states: stepped in hole, causing forward fall landing on lg3 knees, hands and right side of forehead. pain to head, neck and bilateral knees. Coronavirus screen: Client denies travel out of the [place] in the last 14 days. At this time, the client does not indicate any symptoms associated with coronavirus-19. Ebola Screen: No symptoms or risks identified at this time. Initial Sepsis Screen: Does the patient meet any 2 criteria? No. Patient's initial sepsis screen is negative. Does the patient have a suspected source of infection? No. Patient's initial sepsis screen is negative. Risk Assessment: Do you want to hurt yourself or someone else? Patient reports no desire to harm self or others. Onset of symptoms was October 05, 2023. 22:42 Method Of Arrival: Ambulatory lg3 22:42 Acuity: CARMEN 3 lg3 Triage Assessment: 22:47 General: Appears in no apparent distress. uncomfortable, Behavior is calm, cooperative. lg3 Pain: Complains of pain in bilateral knee, neck, head. EENT: No deficits noted. No signs and/or symptoms were reported regarding the EENT system. Neuro: No deficits noted. Rodriguez Agitation-Sedation Scale (RASS): 0 - Alert and Calm Level of Consciousness is awake, alert, obeys commands, Oriented to person, place, time, situation. Cardiovascular: No deficits noted. Denies chest pain, shortness of breath, Capillary refill < 3 seconds Clubbing of nail beds is absent JVD is absent Patient's skin is warm and dry. Respiratory: No deficits noted. Airway is patent Respiratory effort is even, unlabored, Respiratory pattern is regular, symmetrical. GI: No deficits noted. No signs and/or symptoms were reported involving the gastrointestinal system. Abdomen is round non-distended. : No deficits noted. No signs and/or symptoms were reported regarding the genitourinary system. Derm: No deficits noted. Skin is intact, is healthy with good turgor, Skin is dry, Skin is normal, Skin temperature is warm. Musculoskeletal: Reports pain in bilateral knee, neck, head. Historical: - Allergies: 22:47 No Known Allergies; lg3 - Home Meds: 22:47 None [Active]; lg3 - PMHx: 22:47 None; lg3 - PSHx: 22:47 Ligation of fallopian tube; lg3 - Immunization history:: Adult Immunizations up to date, Client reports having NOT received the Covid vaccine. Flu vaccine is not up to date. - Social history:: Smoking status: Patient denies any tobacco usage or history of. Patient/guardian denies using alcohol, street drugs. - Family history:: not pertinent. Screenin/21 01:05 [facility] ED Fall Risk Assessment (Adult) History of falling in the last 3 months, as9 including since admission Yes- single mechanical fall (1 pt) Confusion or Disorientation No (0 pts) Intoxicated or Sedated No (0 pts) Impaired Gait No (0 pts) Mobility Assist Device Used No (0 pt) Altered Elimination No (0 pt) Score/Fall Risk Level 0 - 2 = Low Risk Oriented to surroundings, Maintained a safe environment, Educated pt \T\ family on fall prevention, incl call for assistance when getting out of bed. Abuse screen: Denies threats or abuse. Nutritional screening: No deficits noted. Tuberculosis screening: No symptoms or risk factors identified. Assessment: 10/05 23:20 General: Appears in no apparent distress. comfortable, Behavior is calm, cooperative, as9 appropriate for age. Pain: Complains of pain in head , neck and bilateral knee Pain currently is 9 out of 10 on a pain scale. Quality of pain is described as aching. 23:20 Neuro: Level of Consciousness is awake, alert, obeys commands, Oriented to person, as9 place, time, situation, Appropriate for age. Cardiovascular: Capillary refill < 3 seconds Patient's skin is warm and dry. Respiratory: Airway is patent Respiratory effort is even, unlabored, Respiratory pattern is regular, symmetrical. GI: Abdomen is round non-distended. : No signs and/or symptoms were reported regarding the genitourinary system. EENT: No signs and/or symptoms were reported regarding the EENT system. Derm: Skin is pink, warm \T\ dry. Musculoskeletal: Circulation, motion, and sensation intact. Capillary refill < 3 seconds, Range of motion: intact in all extremities. Vital Signs: 22:42 BP 186 / 85; Pulse 75; Resp 17 S; Temp 98.1(TE); Pulse Ox 99% on R/A; Weight 58.97 kg lg3 (R); Height 5 ft. 2 in. (R); 23:20 BP 199 / 92; Pulse 64; Resp 18; Temp 98; Pulse Ox 99% on R/A; as9 23:30 BP 196 / 86; Pulse 63; Resp 18; Pulse Ox 99% on R/A; as9 10/06 00:00 BP 154 / 86; Pulse 62; Resp 18; Pulse Ox 97% on R/A; as9 00:30 BP 137 / 104; Pulse 62; Resp 18; Temp 98; Pulse Ox 96% on R/A; as9 01:00 BP 158 / 89; Pulse 63; Resp 18; Temp 98; Pulse Ox 97% on R/A; as9 10/05 22:42 Body Mass Index 23.78 (58.97 kg, 157.48 cm) lg3 Girard Coma Score: 00:55 Eye Response: spontaneous(4). Motor Response: obeys commands(6). Verbal Response: sp4 oriented(5). Total: 15. ED Course: 10/05 22:34 Patient arrived in ED. jj6 22:36 Frank Melgoza MD is Attending Physician. sp4 22:47 Triage completed. lg3 22:47 Arm band placed on right wrist. lg3 22:53 Tyrese Gonzalez RN is Primary Nurse. rv 23:15 CT Head C Spine In Process Unspecified. EDMS 23:19 Knee Left 2 View XRAY In Process Unspecified. EDMS 23:19 Knee Right 2 View XRAY In Process Unspecified. EDMS 02 01:05 Patient has correct armband on for positive identification. Placed in gown. Bed in low as9 position. Call light in reach. Side rails up X 1. Provided Education on: discharge medication and discharge instruction given and explained well to the patient. 01:05 No provider procedures requiring assistance completed. as9 01:10 Patient did not have IV access during this emergency room visit. as9 Administered Medications: 10/05 23:31 Drug: HYDROcodone-acetaminophen PO 5 mg-325 mg 2 tabs PO once Route: PO; 10/06 01:09 Follow up: Response: No adverse reaction; Pain is decreased; RASS: Alert and Calm (0) as9 10/05 23:31 Drug: Ibuprofen PO 400 mg PO once Route: PO; 9 10/06 01:09 Follow up: Response: No adverse reaction; Marked relief of symptoms as9 Medication: 01:10 VIS not applicable for this client. as9 Outcome: 00:51 Discharge ordered by MD. kaye 01:10 Discharged to as9 01:11 Discharged to home ambulatory, as9 01:11 Condition: good 01:11 Discharge instructions given to patient, Instructed on discharge instructions, follow up and referral plans. medication usage, Demonstrated understanding of instructions, follow-up care, medications, 01:12 Patient left the ED. as9 Signatures: Dispatcher [employer] EDMS Tyrese Gonzalez, RN RN Lizzeth Frausto RN RN lg3 Deyanira Melgar Sergey, MD MD sp4 Jony Lo RN RN as9
--- NOTE | 2023-10-06 00:51 | EDPHYS ---
Physician Documentation [facility] Name: Lynn Rubin Age: 72 yrs Sex: Female : 1950 Arrival Date: 10/05/2023 Time: 22:32 Bed 5 Private MD: ED Physician Frank Melgoza HPI: 10/05 22:36 This 72 yrs old Female presents to ER via Unassigned with complaints of Fall sp4 Injury. 10/06 00:52 Patient is 72-year-old basically healthy Bengali-speaking female presents with sp4 complaint of acute headache and bilateral knee pain after accidental fall just prior to arrival. Patient fell at the curbside striking her head on the concrete also landing onto her bilateral knees. No LOC . Historical: - Allergies: 10/05 22:47 No Known Allergies; lg3 - Home Meds: 22:47 None [Active]; lg3 - PMHx: 22:47 None; lg3 - PSHx: 22:47 Ligation of fallopian tube; lg3 - Immunization history:: Adult Immunizations up to date, Client reports having NOT received the Covid vaccine. Flu vaccine is not up to date. - Social history:: Smoking status: Patient denies any tobacco usage or history of. Patient/guardian denies using alcohol, street drugs. - Family history:: not pertinent. ROS: 10/06 00:52 Constitutional: Negative for fever, chills, and weight loss, positive headache, sp4 positive bilateral knee pain All other systems are negative, Exam: 00:52 Constitutional: This is a well developed, well nourished patient who is awake, alert, sp4 and in no acute distress. Head/Face: Normocephalic, atraumatic. Eyes: Pupils equal round and reactive to light, extra-ocular motions intact. Lids and lashes normal. Conjunctiva and sclera are not injected. Cornea within normal limits. Periorbital areas with no swelling, redness, or edema. ENT: Nares patent. No nasal discharge, no septal abnormalities noted. Tympanic membranes are normal and external auditory canals are clear. Oropharynx with no redness, swelling, or masses, exudates, or evidence of obstruction, uvula midline. Mucous membranes moist. Neck: Trachea midline, no thyromegaly or masses palpated, and no cervical lymphadenopathy. Supple, full range of motion without nuchal rigidity, or vertebral point tenderness. Chest/axilla: Normal chest wall appearance and motion. Nontender with no deformity. No lesions are appreciated. Cardiovascular: Regular rate and rhythm with a normal S1 and S2. No gallops, murmurs, or rubs. Normal PMI, no JVD. No pulse deficits. Respiratory: Lungs have equal breath sounds bilaterally, clear to auscultation and percussion. No rales, rhonchi or wheezes noted. No increased work of breathing, no retractions or nasal flaring. Abdomen/GI: Soft, with normal bowel sounds. No distension or tympany. No guarding or rebound. No evidence of tenderness throughout. Back: No spinal tenderness. No costovertebral tenderness. Skin: Warm, dry with normal turgor. Normal color with no rashes, no lesions, and no evidence of cellulitis. MS/ Extremity: Pulses equal, no cyanosis. Neurovascular intact. Full, normal range of motion. Neuro: Awake and alert, GCS 15, oriented to person, place, time, and situation. Cranial nerves II-XII grossly intact. Motor strength 5/5 in all extremities. Sensory grossly intact. Psych: Awake, alert, with orientation to person, place and time. Behavior, mood, and affect are within normal limits Vital Signs: 10/05 22:42 BP 186 / 85; Pulse 75; Resp 17 S; Temp 98.1(TE); Pulse Ox 99% on R/A; Weight 58.97 kg lg3 (R); Height 5 ft. 2 in. (R); 23:20 BP 199 / 92; Pulse 64; Resp 18; Temp 98; Pulse Ox 99% on R/A; as9 23:30 BP 196 / 86; Pulse 63; Resp 18; Pulse Ox 99% on R/A; 9 10/06 00:00 BP 154 / 86; Pulse 62; Resp 18; Pulse Ox 97% on R/A; as9 00:30 BP 137 / 104; Pulse 62; Resp 18; Temp 98; Pulse Ox 96% on R/A; as9 01:00 BP 158 / 89; Pulse 63; Resp 18; Temp 98; Pulse Ox 97% on R/A; 10/05 22:42 Body Mass Index 23.78 (58.97 kg, 157.48 cm) lg3 Scribner Coma Score: 00:55 Eye Response: spontaneous(4). Motor Response: obeys commands(6). Verbal Response: sp4 oriented(5). Total: 15. MDM: 10/05 22:57 Patient medically screened. sp4 10/06 00:43 ED course: COMPARISON: No relevant prior studies available. FINDINGS: Brain: Mild sp4 nonspecific white matter changes likely related to chronic microvascular ischemic disease. 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 No hemorrhage. Ventricles: Unremarkable. No ventriculomegaly. Skull: No acute fracture. Sinuses: Unremarkable as visualized. No acute sinusitis. Mastoid air cells: Unremarkable as visualized. No mastoid effusion. Vertebrae: See below. Discs/spinal canal/neural foramina: Multilevel disc space narrowing with degenerative endplate changes most prominent at C5-6. Severe left neural foraminal narrowing at C3-4. Moderate left neural foraminal narrowing at C4-5. Posterior disc bulge with moderate to severe spinal canal narrowing at C4-5. Moderate spinal canal narrowing at C5-6. Soft tissues: Unremarkable. IMPRESSION: No acute intracranial abnormality. No acute findings in the cervical spine. 00:47 ED course: EXAM: XR Right Knee, 1 or 2 Views CLINICAL HISTORY: The patient is 72 years sp4 old and is Female; R knee injury TECHNIQUE: Frontal and/or lateral views of the right knee. COMPARISON: No relevant prior studies available. FINDINGS: BONES/JOINTS: Tricompartmental joint space narrowing is present, most prominent along the medial compartment. Hypertrophy the intercondylar eminence is noted. There is no joint effusion. No acute fracture. No dislocation. SOFT TISSUES: Unremarkable. IMPRESSION: Degenerative change of the right knee. . ED course: EXAM: XR Left Knee, 1 or 2 Views CLINICAL HISTORY: The patient is 72 years old and is Female; L knee injury TECHNIQUE: Frontal and/or lateral views of the left knee. COMPARISON: No relevant prior studies available. FINDINGS: BONES/JOINTS: Tricompartmental joint space narrowing is present. Hypertrophy of the intercondylar eminence is noted. Spurring of the medial tibial plateau and femoral condyle is noted. There is no joint effusion. No acute fracture. No dislocation. SOFT TISSUES: Unremarkable. IMPRESSION: Degenerative change of the left knee without acute findings. . 00:55 Differential diagnosis: abrasion, closed head injury, contusion, fracture, laceration, sp4 multiple trauma. Data reviewed: vital signs, nurses notes, radiologic studies, CT scan, plain films. ED course: Patient stable for discharge home.. 10/05 22:44 Order name: CT Head C Spine sp4 10/05 22:44 Order name: Knee Left 2 View XRAY sp4 10/05 22:44 Order name: Knee Right 2 View XRAY sp4 Administered Medications: 10/05 23:31 Drug: HYDROcodone-acetaminophen PO 5 mg-325 mg 2 tabs PO once Route: PO; as9 10/06 01:09 Follow up: Response: No adverse reaction; Pain is decreased; RASS: Alert and Calm (0) as9 10/05 23:31 Drug: Ibuprofen PO 400 mg PO once Route: PO; as9 10/06 01:09 Follow up: Response: No adverse reaction; Marked relief of symptoms as9 Disposition Summary: 10/06/23 00:51 Discharge Ordered Notes: Location: Home sp4 Problem: new sp4 Symptoms: have improved sp4 Condition: Stable sp4 Diagnosis - Fall (on)(from) sidewalk curb sp4 - Acute head injury, forehead contusion, closed head injury, acute headache, sp4 bilateral knee contusion Followup: sp4 - With: Private Physician - When: 7 - 10 days - Reason: Re-evaluation by your physician Discharge Instructions: - Discharge Summary Sheet sp4 - Head Injury, Adult, [id number] sp4 Forms: - Patient Portal Instructions sp4 Prescriptions: - Ibuprofen 600 mg Oral Tablet - take 1 tablet ORAL route every 6 hours As needed take with food; 30 tablet; sp4 Refills: 0, Product Selection Permitted - Tramadol 50 mg Oral Tablet - take 1 tablet ORAL route every 8 hours as needed; 12 tablet; Refills: 0, sp4 Product Selection Permitted Signatures: Dispatcher [employer] EDLizzeth Guzman RN RN lg3 Frank Melgoza MD MD sp4 Jony Lo RN RN as9
--- NOTE | 2023-10-06 12:23 | RAD REPORT ---
EXAM DESCRIPTION: CT - Head C Spine Mpr Wo Con - 10/06/2023 6:50 am CLINICAL HISTORY: The patient is 72 years old and is Female; fall , head and neck injury TECHNIQUE: Axial computed tomography images of the head/brain and cervical spine without intravenous contrast. Sagittal and coronal reformatted images were created and reviewed. This CT exam was pe rformed using one or more of the following dose reduction techniques: automated exposure control, a djustment of the mA and/or kV according to patient size, and/or use of iterative reconstruction techn ique. COMPARISON: No relevant prior studies available. FINDINGS: Brain: Mild nonspecific white matter changes likely related to chronic microvascular isc hemic disease. 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 No hemorrhage. Ventricles: Unremarkable. No ventriculomegaly. Skull: No acute fracture. Sinuses: Unremarkable as visualized. No acute sinusitis. Mastoid air cells: Unremarkable as visualized. No mastoid effusion. Vertebrae: See below. Discs/spinal canal/neural foramina: Multilevel disc space narrowing with degenerative endplate ch anges most prominent at C5-6. Severe left neural foraminal narrowing at C3-4. Moderate left neural foraminal narrowing at C4-5. Posterior disc bulge with moderate to severe spinal canal narrowing at C4-5. Moderate spinal canal narrowing at C5-6. Soft tissues: Unremarkable. IMPRESSION: No acute intracranial abnormality. No acute findings in the cervical spine. Electronically signed by: Naveen Brannon MD 10/05/2023 11:50 PM GRIP BOSS Due to temporary technical issues with the PACS/Fluency reporting system, reports are being signed by the in house radiologist without review as a courtesy to ensure prompt reporting. The interpreting r adiologist is fully responsible for the content of the report.
--- NOTE | 2023-10-06 12:24 | RAD REPORT ---
EXAM DESCRIPTION: RAD - Knee Left 2 View - 10/05/2023 11:18 pm CLINICAL HISTORY: The patient is 72 years old and is Female; L knee injury TECHNIQUE: Frontal and/or lateral views of the left knee. COMPARISON: No relevant prior studies available. FINDINGS: BONES/JOINTS: Tricompartmental joint space narrowing is present. Hypertrophy of the inte rcondylar eminence is noted. Spurring of the medial tibial plateau and femoral condyle is noted. Ther e is no joint effusion. No acute fracture. No dislocation. SOFT TISSUES: Unremarkable. IMPRESSION: Degenerative change of the left knee without acute findings. Electronically signed by: Dina Bolanos MD 10/05/2023 11:48 PM PUPPY TRAINER Due to temporary technical issues with the PACS/Fluency reporting system, reports are being signed by the in house radiologist without review as a courtesy to ensure prompt reporting. The interpreting r adiologist is fully responsible for the content of the report.
--- NOTE | 2023-10-06 12:44 | RAD REPORT ---
EXAM DESCRIPTION: RAD - Knee Right 2 View - 10/05/2023 11:18 pm CLINICAL HISTORY: The patient is 72 years old and is Female; R knee injury TECHNIQUE: Frontal and/or lateral views of the right knee. COMPARISON: No relevant prior studies available. FINDINGS: BONES/JOINTS: Tricompartmental joint space narrowing is present, most prominent along th e medial compartment. Hypertrophy the intercondylar eminence is noted. There is no joint effusion. No acute fracture. No dislocation. SOFT TISSUES: Unremarkable. IMPRESSION: Degenerative change of the right knee. Electronically signed by: Dina Bolanos MD 10/05/2023 11:48 PM CHILD AND ADOLESCENT THERAPIST Due to temporary technical issues with the PACS/Fluency reporting system, reports are being signed by the in house radiologist without review as a courtesy to ensure prompt reporting. The interpreting r adiologist is fully responsible for the content of the report.
== END ==
LOC: ER 22:32
DX: S00.83XA Contusion of other part of head, initial encounter (principal); S80.02XA Contusion of left knee, initial encounter; S80.01XA Contusion of right knee, initial encounter; R51.9 Headache, unspecified; W10.1XXA Fall (on)(from) sidewalk curb, initial encounter; Z28.310 Unvaccinated for COVID-19
CPT/HCPCS: 70450; 72125